=== PATIENT | female | born 1980 | race African-American/Black ===

== ENCOUNTER 2016-08-17 08:36 | Emergency (ER) | payer MEDICAID, OTHER ==
[~2016-08-17] VITALS: Ht 165.1 cm; Wt 93.0 kg
[~2016-08-17 08:36] MED LIST: METO10TA92 PO; NITR-58 PO; TYL500 PO
[2016-08-17 08:39] VITALS: Ht 165.1 cm; Wt 93.0 kg
[2016-08-17] MEDS ORDERED: DIPHENHYDRAMINE 50 MG INJ IM ONE (09:00)
--- NOTE | 2016-08-17 09:02 | ERA ---
ER Documentation Chief Complaint Date/Time DATE: 08/17/16 TIME: 08:53 Chief Complaint Complains of an alllergic reaction HPI This is a 36-year-old female presenting with a chief complaint of allergic reaction. Patient describes symptoms as pruritic and covering the torso and proximal extremities. Patient's allergic reaction started 3-year-old female 5 days ago. Patient was seen at another ER. Patient was given Benadryl IM which she stated improve the symptoms. Patient was prescribed prednisone outpatient with minimal relief. Patient was seen at [facility] 8 days ago for boil. Patient was prescribed cephalexin. Patient denies new or different foods , detergents or soaps, change in living situation, history of drug allergies, or any other environmental factors. Patient denies difficulty breathing. Patient has no other complaints and describes no other associated manifestations at this time. ROS All systems reviewed and are negative except as per history of present illness. Medications Home Meds Active Scripts Clindamycin Hcl* (Clindamycin Hcl*) 300 Mg Capsule, 300 MG PO TID for 10 Days, CAP Prov:YOLANDA JJ PA-C 08/17/16 Diphenhydramine Hcl* (Benadryl*) 25 Mg Cap, 25 MG PO Q6, #30 CAP Prov:YOLANDA JJ PA-C 08/17/16 Methylprednisolone* (Medrol* DOSE PACK) 4 Mg/Dose-Pack Tab.ds.pk, 4 MG PO . DIRECTED for 1 Day, PACKET Prov:YOLANDA JJ PA-C 08/17/16 Metoclopramide* (Reglan*) 10 Mg Tablet, 10 MG PO Q6 Y for NAUSEA AND/OR VOMITING , #10 TAB Prov:BENITO PATEL 10/16/15 Nitrofurantoin Monohyd Macrocr* (Macrobid*) 100 Mg Capsr, 100 MG PO BID for 7 Days, CAP Prov:BENITO PATEL 10/16/15 Acetaminophen* (Tylenol*) 500 Mg Tab, 1000 MG PO Q8H Y for PAIN AND OR ELEVATED TEMP for 3 Days, TAB Prov:BENITO PATEL 10/16/15 Allergies Allergies: Coded Allergies: cephalexin (Verified Allergy, Unknown, 08/17/16) PMhx/Soc Medical and Surgical Hx: pt denies Medical Hx, pt denies Surgical Hx History of Surgery: No Anesthesia Reaction: No Hx Neurological Disorder: No Hx Respiratory Disorders: No Hx Cardiac Disorders: No Hx Psychiatric Problems: No Hx Miscellaneous Medical Probl: No Hx Alcohol Use: Yes (occasionally) Hx Substance Use: No Hx Tobacco Use: Yes Smoking Status: Never smoker Physical Exam Vitals Vital Signs Date Time Temp Pulse Resp B/P Pulse Ox O2 Delivery O2 Flow Rate FiO2 08/17/16 08:39 98.1 81 20 142/20 98 Physical Exam Const: Healthy-appearing. Well-nourished. Well-developed. No acute distress. Skin: Wheals spread diffusely across chest back abdomen and proximal extremities. No petechiae, ulcer, induration or laceration. Pulm: Good air movement. No rhonchi, wheezes or crackles in all lobes bilaterally auscultated. No abnormal tympani or dullness on percussion in all lobes bilaterally. Equal and appropriate lung expansion. No abnormal tactile fremitus palpated. No retractions, stridor, tripoding or drooling. Oral: No oral edema visualized. Mucous membranes moist and pink. Neck: No cervical lymphadenopathy, masses or goiter palpated. Full range of motion. Supple. Trachea midline. ~ No meningismus. Head: Normocephalic, Atraumatic. No sinus tenderness. Eyes: Non-injected; No scleral erythema, discharge or foreign body. EOMI and KATHLEEN bilaterally. Ears: Normal External Ears, EACs clear, TM normal bilaterally without erythema. Nose: Normal nose without discharge, septal deviation, or sinus tenderness. Cardio: Regular rate and rhythm; No murmurs, gallops or rubs auscultated. No JVD grossly observed. Radial and posterior tibial pulses 2+ bilaterally. No cyanosis. Capillary refill less than 2 seconds. Abd: Soft, non tender, non distended. No guarding, masses. Normal bowel sounds. No McBurney's point tenderness. MS: Normal motor strength, normal tone with gross examination. Back: No midline, flank or CVA tenderness. Ext: No cyanosis, edema or palpable cord. Normal movement of all extremities grossly observed. Neur: Awake, alert and oriented x3. Neurovascularly intact bilaterally. Psych: Active and alert. Normal Mood and Affect. Oriented x3. Results 24 hrs Current Medications Medications (Trade) Dose Ordered Sig/Jeni Route PRN Reason Start Time Stop Time Status Last Admin Dose Admin Diphenhydramine HCl (Benadryl) 50 mg ONCE ONCE IM 08/17/16 09:00 08/17/16 09:01 DC 08/17/16 09:06 Famotidine (Pepcid) 20 mg ONCE ONCE PO 08/17/16 09:30 08/17/16 09:31 DC 08/17/16 09:18 Procedures/MDM This is a 36-year-old female being worked up and evaluated for allergic reaction as described in history and physical examination. Patient was seen 4 days ago at another emergency department and was given Benadryl IM with relief of symptoms. Patient has been prescribed prednisone with minimal relief. Patient has also been on cephalexin antibiotics 8 days which is the only known possible causative agent of the urticaria. Differential diagnosis includes but is not limited to the following: Acute urticaria, morbilliform drug eruption, or contact dermatitis. Since patient previously had relief of symptoms with Benadryl they were given Benadryl 50 mg IM in the emergency department. On reevaluation the patient's symptoms had resolved. Patient will be discharged with a new antibiotic to replace cephalexin which was most likely caused of symptoms, Benadryl and a Medrol Dosepak since she had previously been on prednisone with little relief nonoperative treatment. At this time, I have little suspicion for vasculitis, erythema multiforme, contact dermatitis, pityriasis rosea, erythema migrans / lyme disease, or endangerment of the airway. Departure Diagnosis: Primary Impression: Allergic reaction Qualified Code: T78.40XA - Allergic reaction, initial encounter Additional Impression: Allergy or intolerance to drug Condition: Stable Additional Instructions: Follow up with your PCP within the next 1-3 days for a more thorough evaluation and a possible referral to a specialist. Return the the emergency department immediately if symptoms worsen or change. If you have any questions regarding medications, ask your pharmacist or us before you leave. If any adverse reactions occur while taking your medications, discontinue the treatment and return to the emergency department immediately. Take your medications as directed, and complete the entire course of treatment. YOLANDA JJ PA-C Aug 17, 2016 09:02
[2016-08-17] MEDS ORDERED: FAMOTIDINE 20 MG TAB PO ONE (09:30)
[2016-08-17] MEDS ORDERED: MED4DP PO (10:33)
[2016-08-17] MEDS ORDERED: BEN25 PO (10:33)
[2016-08-17] MEDS ORDERED: CLIN-73 PO (10:36)
== END 2016-08-17 10:39 | disposition home or self-care (01) ==
LOC: FTE 08:36
DX: L29.9 Pruritus, unspecified (principal); Z87.891 Personal history of nicotine dependence
CPT/HCPCS: 96372; J1200; Z7502; Z7610

== ENCOUNTER 2017-02-03 10:59 | Emergency (ER) | payer MEDICAID, OTHER ==
[~2017-02-03] VITALS: Wt 92.2 kg
[~2017-02-03 10:59] MED LIST changes: +BEN25 PO; +CLIN-73 PO; +MED4DP PO
--- NOTE | 2017-02-03 14:12 | RADRPT ---
PROCEDURE: XR Foot. CLINICAL INDICATION: pain TECHNIQUE: AP, lateral and oblique views of the right foot was obtained. The images were reviewed on a PACS workstation. COMPARISON: None. FINDINGS: The bones of the foot appear intact, with no evidence of acute fracture, dislocation, or subluxation . The joint spaces are preserved. Bone mineralization is normal. No significant soft tissue swelling is seen. There are small posterior and plantar calcaneal spurs. RPTAT: AA IMPRESSION: Small calcaneal spurs. No acute fracture. .Donald Chamorro MD, MD Date Time Electronically viewed and signed by .Donald Chamorro MD, MD on 02/03/2017 14:12 .S/
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
[2017-02-03] MEDS ORDERED: NAPR-260 PO (14:42)
[2017-02-03] MEDS ORDERED: UDROBDM PO (14:42)
[2017-02-03] MEDS ORDERED: ALBU18HF INHALATION (14:42)
[2017-02-03] MEDS ORDERED: CETI10CA PO (14:43)
[2017-02-03] MEDS ORDERED: ALBUTEROL 0.083% (NEB) 2.5 MG/3 ML AMP NEB STA (14:45)
[2017-02-03] MEDS ORDERED: IPRATROPIUM (NEB) 0.5 MG/2.5 ML AMP NEB STA (14:45)
== END 2017-02-03 15:25 | disposition home or self-care (01) ==
LOC: FTE 10:59
DX: R05 Cough (principal); M79.671 Pain in right foot; F17.210 Nicotine dependence, cigarettes, uncomplicated
CPT/HCPCS: 73630; 94664; Z7502; Z7610

== ENCOUNTER 2018-03-23 13:49 | Emergency (ER) | payer MEDICAID, OTHER ==
[~2018-03-23] VITALS: Ht 170.2 cm; Wt 92.0 kg
[~2018-03-23 13:49] MED LIST changes: +ALBU18HF INHALATION; +CETI10CA PO; -CLIN-73 PO; +CLIN300C10 PO; +GUAI5SYR2 PO; +NAPR-985 PO
[2018-03-23 14:15] VITALS: Ht 170.2 cm; Wt 92.0 kg
[2018-03-23] MEDS ORDERED: LORAZEPAM 1 MG TAB PO ONE (15:00)
[2018-03-23] MEDS ORDERED: HYDROCODONE/APAP (5/325) TAB PO ONE (15:00)
[2018-03-23] MEDS ORDERED: LIDOCAINE 2% (MDV) 20 ML INJ INJ ONE (15:00)
[2018-03-23] MEDS ORDERED: NAPR-985 PO (15:59)
--- NOTE | 2018-03-23 17:48 | ERD ---
ER Documentation Chief Complaint Chief Complaint RIGHT ARM PIT LARGE BUMP WITH DISCHARGE YESTERDAY HPI Patient is a 38-year-old female with no significant past medical history presenting to the emergency department with complaints of abscess to her right armpit for the past 1 week. She has noticed some drainage from the area. She has been on clindamycin for the past 3 days which she was prescribed from an urgent care. The pain is constant, worse with palpation of the area, rated 10/10 in severity. She denies any fevers or chills or other symptoms at this time. ROS All systems reviewed and are negative except as per history of present illness. Medications Home Meds Active Scripts Naproxen* (Naprosyn*) 500 Mg Tablet, 500 MG PO BID PRN for PAIN AND/OR INFLAMMATION, #30 TAB Prov:ROJELIO LITTLEJOHN PA-C 03/23/18 Cetirizine Hcl* (Zyrtec*) 10 Mg Capsule, 10 MG PO DAILY, #14 TAB.CHEW Prov:MARY CRUZ PA-C 02/03/17 Naproxen* (Naprosyn*) 500 Mg Tablet, 500 MG PO BID PRN for PAIN AND/OR INFLAMMATION, #30 TAB Prov:MARY CRUZ PA-C 02/03/17 Guaifenesin-Dextromethorphan* (Robitussin* DM) 100MG/10MG/5ML Syrup, 10 ML PO Q6H PRN for COUGH for 5 Days, ML Prov:MARY CRUZ PA-C 02/03/17 Albuterol Sulfate* (Ventolin HFA*) 18 Gm Hfa.aer.ad, 2 PUFF INHALATION Q4H, #1 INHALER Prov:MARY CRUZ PA-C 02/03/17 Clindamycin Hcl* (Clindamycin Hcl*) 300 Mg Capsule, 300 MG PO TID for 10 Days, CAP Prov:YOLANDA JJ PA-C 08/17/16 Diphenhydramine Hcl* (Benadryl*) 25 Mg Cap, 25 MG PO Q6, #30 CAP Prov:YOLANDA JJ PA-C 08/17/16 Methylprednisolone* (Medrol* DOSE PACK) 4 Mg/Dose-Pack Tab.ds.pk, 4 MG PO . DIRECTED for 1 Day, PACKET Prov:YOLANDA JJ PA-C 08/17/16 Metoclopramide* (Reglan*) 10 Mg Tablet, 10 MG PO Q6 PRN for NAUSEA AND/OR VOMITING, #10 TAB Prov:BENITO PATEL Kurt 10/16/15 Nitrofurantoin Monohyd Macrocr* (Macrobid*) 100 Mg Capsr, 100 MG PO BID for 7 Days, CAP Prov:BENITO PATEL 10/16/15 Acetaminophen* (Tylenol*) 500 Mg Tab, 1000 MG PO Q8H PRN for PAIN AND OR ELEVATED TEMP for 3 Days, TAB Prov:BENITO PATEL 10/16/15 Allergies Allergies: Coded Allergies: cephalexin (Verified Allergy, Unknown, 02/03/17) PMhx/Soc History of Surgery: No Anesthesia Reaction: No Hx Neurological Disorder: No Hx Respiratory Disorders: No Hx Cardiac Disorders: No Hx Psychiatric Problems: No Hx Miscellaneous Medical Probl: No Hx Alcohol Use: Yes (occasionally) Hx Substance Use: No Hx Tobacco Use: Yes Smoking Status: Current some day smoker FmHx Family History: No diabetes Physical Exam Vitals Vital Signs Date Temp Pulse Resp B/P (MAP) Pulse Ox O2 O2 Flow FiO2 Time Delivery Rate 03/23/18 98.7 74 18 155/93 100 14:15 (113) Physical Exam Const: No acute distress Head: Atraumatic Eyes: Normal Conjunctiva ENT: Normal External Ears, Nose and Mouth. Neck: Full range of motion. No meningismus. Resp: Clear to auscultation bilaterally Cardio: Regular rate and rhythm, no murmurs Skin: There is an approximate 2 cm x 2 cm fluctuant abscess noted to the right axillary region. No significant surrounding erythema. Ext: No cyanosis, or edema Neur: Awake and alert Psych: Anxious. Results 24 hrs Current Medications Medications Dose Sig/Jeni Start Time Status Last (Trade) Ordered Route PRN Stop Time Admin Dose Reason Admin 1 tab ONCE ONCE 03/23/18 DC 03/23/18 Acetaminophen PO 15:00 14:55 / 03/23/18 15:01 Hydrocodone Bitart ([place] (5/325)) Lorazepam 1 mg ONCE ONCE 03/23/18 DC 03/23/18 (Ativan) PO 15:00 14:54 03/23/18 15:01 Lidocaine 20 ml ONCE ONCE 03/23/18 DC (Xylocaine INJ 15:00 2% (Mdv) 20 03/23/18 15:01 ml) Procedures/MDM Patient is a 38-year-old female presenting to the emergency department complaints of abscess to the right axillary region. Patient was anxious during my physical examination stating she was in significant pain. The patient was administered Ativan and [place] with good response. She is explained the full risks, benefits, alternatives to incision and drainage and she gave verbal consent. Abscess Incision and Drainage with irrigation by me: Location: Right axillary region Anesthesia: Local 1% Lidocaine Technique: Irrigated. Disrupted loculations w/ instrumentation Packing: None Complications: Neurovascularly intact post procedure 48 hour wound check. Scar minimization instructions given. No evidence of life-threatening pathology at time of discharge. Pt/family in agreement with discharge plan/diagnosis. Pt/family advised to return immediately with any new or worsening symptoms. Follow-up with primary care physician within the next 1-2 days. Patient's blood pressure was elevated (>120/80) but appears stable without evidence of hypertension emergency or urgency. The patient is to follow-up and pursue outpatient monitoring and therapy with their primary care physician within 1 week and return immediately if they have any new, worsening, or concerning symptoms. Departure Diagnosis: Primary Impression: Abscess Condition: Fair Patient Instructions: Abscess, Incision And Drainage Referrals: [facility] Additional Instructions: Return to this facility in 2 DAYS for a follow-up exam.Return sooner if your condition worsens. Call your primary care doctor TOMORROW for an appointment during the next 1-2 days.See the doctor sooner or return here if your condition worsens before your appointment time. ROJELIO LITTLEJOHN PA-C Mar 23, 2018 17:48
== END 2018-03-23 16:00 | disposition home or self-care (01) ==
LOC: FTE 13:49
DX: L02.413 Cutaneous abscess of right upper limb (principal); F17.210 Nicotine dependence, cigarettes, uncomplicated
CPT/HCPCS: 10060; Z7502; Z7610

== ENCOUNTER 2018-09-27 11:24 | Emergency (ER) | payer SELFPAY ==
[~2018-09-27] VITALS: Ht 167.6 cm; Wt 80.6 kg
[2018-09-27 11:27] VITALS: BP 121/79; PULSE 82; RESP 18; Ht 167.6 cm; Wt 80.6 kg
== END 2018-09-27 13:20 | disposition left against medical advice (07) ==
LOC: FTE 11:24
DX: Z53.21 Procedure and treatment not carried out due to patient leaving prior to being seen by health care provider (principal)

== ENCOUNTER 2019-01-02 12:56 | Emergency (ER) | payer SELFPAY ==
[~2019-01-02] VITALS: Ht 165.1 cm; Wt 79.7 kg
[2019-01-02 12:59] VITALS: BP 142/86; PULSE 96; RESP 16; Ht 165.1 cm; Wt 79.7 kg
== END 2019-01-02 13:21 | disposition left against medical advice (07) ==
LOC: FTE 12:56
DX: Z53.21 Procedure and treatment not carried out due to patient leaving prior to being seen by health care provider (principal)